=== PATIENT | male | born 1960 | race African-American/Black ===

== ENCOUNTER 2018-10-18 11:16 | Observation (INO) | payer BC ==
[~2018-10-18] VITALS: Ht 193 cm; Wt 150.0 kg
[2018-10-18 12:03] LABS: EOSINOPHILS % (AUTO) 0.4 % (0-6); HEMATOCRIT 43.2 % (42.0-52.0); HEMOGLOBIN 14.1 g/dl (14.0-17.9); LYMPHOCYTES # (AUTO) 1.3 X10'3 (1.1-4.8); LYMPHOCYTES % (AUTO) 33.7 % (21-51); MEAN CORPUSCULAR HEMOGLOBIN 24.3 PG (27.0-31.0); MEAN CORPUSCULAR HGB CONC 32.6 g/dL (33.0-36.5); MEAN CORPUSCULAR VOLUME 74.5 FL (78-98); MEAN PLATELET VOLUME 8.5 FL (7.4-10.4); MONOCYTES # (AUTO) 0.3 X10'3 (0-0.9); MONOCYTES % (AUTO) 7.1 % (2-12); NEUTROPHILS # (AUTO) 2.3 X10'3 (1.8-7.7); NEUTROPHILS % (AUTO) 57.8 % (42-75); PLATELET COUNT 258 X10'3 (140-440); RED BLOOD COUNT 5.79 X10'6 (4.70-6.10)
[2018-10-18 12:13] LABS: ALANINE AMINOTRANSFERASE 33 U/L (12-78); ALBUMIN 3.9 G/DL (3.4-5.0); ALBUMIN/GLOBULIN RATIO 1.1 (1.1-1.5); ALKALINE PHOSPHATASE 173 IU/L (46-116); ANION GAP 8 (8-16); ASPARTATE AMINO TRANSFERASE 25 U/L (10-37); BILIRUBIN,TOTAL 0.8 MG/DL (0.1-1.0); BLOOD UREA NITROGEN 16 MG/DL (7-18); BUN/CREATININE RATIO 12.1 (5.4-32.0); CHLORIDE 108 MMOL/L (99-107); CREATININE 1.32 MG/DL (0.60-1.10); GLUCOSE 110 MG/DL (70-104); POTASSIUM 3.7 MMOL/L (3.5-5.1); SODIUM 142 MMOL/L (135-145); TOTAL CARBON DIOXIDE 25.8 MMOL/L (24-32); TOTAL PROTEIN 7.5 G/DL (6.4-8.2); eGFR 68 ML/MIN
[2018-10-18] MEDS ORDERED: HYDROcodone/acetaminophen 5mg/325mg tablet PO PRN (13:00)
[2018-10-18] MEDS ORDERED: ondansetron/PF 4mg/2ml inj IV PRN (13:00)
[2018-10-18] MEDS ORDERED: acetaminophen 325mg tablet PO PRN ×2 (13:00)
[2018-10-18] MEDS ORDERED: magnesium hydroxide 30ml (MOM) UD suspension PO PRN (13:00)
[2018-10-18] MEDS ORDERED: morphine 2 MG/ML inj. syringe IV PRN ×2 (13:00)
[2018-10-18] MEDS ORDERED: mag hydrox/Alum hydrox/simeth 30ml oral suspension PO PRN (13:00)
[2018-10-18] MEDS: normal saline 1000ml 1,000 ML IV SCH ×3 (13:31→22:34)
[2018-10-18 13:34] LABS: MAGNESIUM 2.1 MG/DL (1.5-2.4); PHOSPHORUS 3.1 MG/DL (2.3-4.5)
--- NOTE | 2018-10-18 13:45 | NUR ---
Patient in room PCU 3027. I have received report from ED RN and had the opportunity to ask questions and assume patient care. Awaiting patient's arrival to PCU 3027A.
[2018-10-18] MEDS ORDERED: ASPI-1130 PO (13:59)
[2018-10-18] MEDS ORDERED: HYDR12.55 PO (13:59)
[2018-10-18] MEDS ORDERED: AMLO2.5T5 PO (13:59)
[2018-10-18] MEDS ORDERED: ATOR40TA72 PO (13:59)
[2018-10-18] MEDS ORDERED: METF-950 PO (13:59)
[2018-10-18 14:10] VITALS: BP 135/78
--- NOTE | 2018-10-18 14:47 | NUR ---
VS: 97.5 58 16 98.0 135/78, no pain noted, Patient has been transferred from ED to PCU 3027A @1410, able to ambulate from gurney to bed, tele monitor placed, reoriented patient to unit, call light w/in reach, all needs met at this time. will continue to monitor.
[2018-10-18 15:00] VITALS: BP 143/63
[2018-10-18 16:21] VITALS: BP_SYST 124; BP_SYST 141; BP_SYST 143; BP_DIAS 68; BP_DIAS 76; BP_DIAS 77
--- NOTE | 2018-10-18 18:15 | NUR ---
Problems reprioritized. Patient report given, questions answered & plan of care reviewed with Geremias VASQUEZ.
--- NOTE | 2018-10-18 18:33 | NUR ---
Patient in room PCU 5172j. I have received report from Niharika RN and Fatou RN and had the opportunity to ask questions and assume patient care. Patient awake for bedside report and stable at this time. NS infusing at 100 mL/hr into 18G L hand. Son in room. Will continue to monitor closely.
--- NOTE | 2018-10-18 18:45 | NUR ---
Problems reprioritized. Patient report given, questions answered & plan of care reviewed with CHRISTINA Archuleta. Patient stable at transfer of care.
--- NOTE | 2018-10-18 18:45 | NUR ---
[place] documentation: I have reviewed and agree with all interventions, assessments performed and documented by CHRISTINA Langston. [place] Medication Administration: For this medication-pass time frame, all medication were reviewed, dispensed, administered and documented per hospital policy by CHRISTINA Langston.
[2018-10-18 19:00] VITALS: BP 141/78
[2018-10-18 20:00] VITALS: BP_SYST 126; BP_SYST 129; BP_SYST 137; BP_DIAS 60; BP_DIAS 65; BP_DIAS 80
[2018-10-18 23:00] VITALS: BP 126/60
[2018-10-19 03:00] VITALS: BP 124/75
[2018-10-19 04:57] LABS: BASOPHILS % (AUTO) 0.5 % (0-1); EOSINOPHILS # (AUTO) 0.1 X10'3 (0-0.9); EOSINOPHILS % (AUTO) 1.8 % (0-6); HEMATOCRIT 38.7 % (42.0-52.0); HEMOGLOBIN 12.9 g/dl (14.0-17.9); LYMPHOCYTES # (AUTO) 1.6 X10'3 (1.1-4.8); LYMPHOCYTES % (AUTO) 43.8 % (21-51); MEAN CORPUSCULAR HEMOGLOBIN 24.6 PG (27.0-31.0); MEAN CORPUSCULAR HGB CONC 33.2 g/dL (33.0-36.5); MEAN CORPUSCULAR VOLUME 73.9 FL (78-98); MEAN PLATELET VOLUME 8.3 FL (7.4-10.4); MONOCYTES # (AUTO) 0.4 X10'3 (0-0.9); MONOCYTES % (AUTO) 11.1 % (2-12); NEUTROPHILS # (AUTO) 1.6 X10'3 (1.8-7.7); NEUTROPHILS % (AUTO) 42.8 % (42-75); PLATELET COUNT 223 X10'3 (140-440); RED BLOOD COUNT 5.24 X10'6 (4.70-6.10); WHITE BLOOD COUNT 3.8 X10'3 (4.5-11.0)
[2018-10-19 05:02] LABS: ALBUMIN 3.4 G/DL (3.4-5.0); ANION GAP 9 (8-16); BLOOD UREA NITROGEN 15 MG/DL (7-18); BUN/CREATININE RATIO 10.9 (5.4-32.0); CALCIUM 8.5 MG/DL (8.5-10.1); CHLORIDE 108 MMOL/L (99-107); CREATININE 1.37 MG/DL (0.60-1.10); GLUCOSE 110 MG/DL (70-104); POTASSIUM 3.8 MMOL/L (3.5-5.1); SODIUM 145 MMOL/L (135-145); TOTAL CARBON DIOXIDE 27.6 MMOL/L (24-32); eGFR 65 ML/MIN
[2018-10-19] MEDS ORDERED: CETI10TA14 PO (06:16)
--- NOTE | 2018-10-19 06:32 | NUR ---
Problems reprioritized. Patient report given, questions answered & plan of care reviewed with CHRISTINA Reeves.
--- NOTE | 2018-10-19 06:35 | NUR ---
Patient in room PCU 3027. I have received report from Geremias VASQUEZ and had the opportunity to ask questions and assume patient care.
[2018-10-19 07:00] VITALS: BP 107/46
[2018-10-19 08:00] VITALS: BP_SYST 130; BP_SYST 134; BP_SYST 148; BP_DIAS 68; BP_DIAS 70
[2018-10-19] MEDS ORDERED: aspirin 81mg tablet.DR PO SCH (08:00)
[2018-10-19] MEDS ORDERED: non-formulary drug (Atorvastatin Calcium 1 TAB) PO SCH (08:00)
[2018-10-19] MEDS ORDERED: atorvastatin 20mg tablet PO SCH (08:00)
[2018-10-19] MEDS ORDERED: HYDROchlorothiazide 12.5mg capsule PO SCH (08:00)
[2018-10-19] MEDS ORDERED: non-formulary drug (Hydrochlorothiazide 1 TAB) PO SCH (08:00)
[2018-10-19] MEDS ORDERED: metFORMIN 500mg tablet PO SCH (08:00)
[2018-10-19] MEDS ORDERED: amLODIPine 2.5mg tablet PO SCH (08:00)
[2018-10-19] MEDS: normal saline 1000ml 1,000 ML IV SCH ×2 (09:20→09:21)
[2018-10-19 11:00] VITALS: BP 141/60
[2018-10-19] MEDS ORDERED: APIX5TAB3 PO (11:03)
--- NOTE | 2018-10-19 12:10 | NUR ---
Reviewed discharge instruction with pt. Educated pt on following up with Dr. Farrell and pt's PCP. Pt is scheduled to his PCP 10/21/18. Called in new prescription to [facility] in [facility]. Discontinued IV with canula intact and removed tele monitor. Pt alert and oriented X 4, BP 141/60 HR 59 SPO2 98% on room air. Pt discharged with all of his belongings and driven home by family member.
== END 2018-10-19 12:10 | disposition home or self-care (01) ==
LOC: ER 11:17 → PCU 3S 14:12 → CMPBEDREQ 19:47
PROVIDERS: ADMIT Internal Medicine; ATTEND Internal Medicine
DX: I48.92 Unspecified atrial flutter (principal); R42 Dizziness and giddiness; R00.1 Bradycardia, unspecified; E11.9 Type 2 diabetes mellitus without complications; E78.5 Hyperlipidemia, unspecified; I10 Essential (primary) hypertension; E78.00 Pure hypercholesterolemia, unspecified; E66.01 Morbid (severe) obesity due to excess calories; Z68.41 Body mass index [BMI] 40.0-44.9, adult; G47.30 Sleep apnea, unspecified
CPT/HCPCS: 36415; 71046; 80048; 80053; 83735; 83880; 84100; 84443; 84484; 85025; 87081; 93005; 93306; 96360; 96361; 99284; G0378; J7030

== ENCOUNTER 2019-06-12 22:22 | Inpatient (IN) | payer BC ==
[~2019-06-12] VITALS: Ht 193 cm; Wt 147.0 kg
[~2019-06-12 22:22] MED LIST: AMLO2.5T5 PO; APIX5TAB3 PO; ATOR40TA72 PO; CETI10TA14 PO; HYDR12.55 PO; METF-950 PO
[2019-06-12] MEDS ORDERED: metoprolol tartrate 1mg/ml inj IV ONE (22:50)
[2019-06-12 23:16] LABS: BASOPHILS % (AUTO) 0.7 % (0-1); EOSINOPHILS # (AUTO) 0.1 X10'3 (0-0.9); EOSINOPHILS % (AUTO) 1.5 % (0-6); HEMATOCRIT 44.5 % (42.0-52.0); HEMOGLOBIN 15.2 g/dl (14.0-17.9); LYMPHOCYTES # (AUTO) 1.7 X10'3 (1.1-4.8); LYMPHOCYTES % (AUTO) 36.1 % (21-51); MEAN CORPUSCULAR HEMOGLOBIN 26.2 PG (27.0-31.0); MEAN CORPUSCULAR HGB CONC 34.1 g/dL (33.0-36.5); MEAN CORPUSCULAR VOLUME 76.6 FL (78-98); MEAN PLATELET VOLUME 8.6 FL (7.4-10.4); MONOCYTES # (AUTO) 0.4 X10'3 (0-0.9); MONOCYTES % (AUTO) 9.2 % (2-12); NEUTROPHILS # (AUTO) 2.5 X10'3 (1.8-7.7); NEUTROPHILS % (AUTO) 52.5 % (42-75); PLATELET COUNT 245 X10'3 (140-440); RED BLOOD COUNT 5.81 X10'6 (4.70-6.10); RED CELL DISTRIBUTION WIDTH 14.4 % (11.5-14.5); WHITE BLOOD COUNT 4.8 X10'3 (4.5-11.0)
[2019-06-12 23:26] LABS: ALANINE AMINOTRANSFERASE 50 U/L (12-78); ALBUMIN 3.8 G/DL (3.4-5.0); ALKALINE PHOSPHATASE 139 IU/L (46-116); ANION GAP 9 (8-16); ASPARTATE AMINO TRANSFERASE 39 U/L (10-37); BILIRUBIN,TOTAL 0.5 MG/DL (0.1-1.0); BLOOD UREA NITROGEN 20 MG/DL (7-18); BUN/CREATININE RATIO 13.2 (5.4-32.0); CALCIUM 9.2 MG/DL (8.5-10.1); CHLORIDE 106 MMOL/L (99-107); CREATININE 1.52 MG/DL (0.60-1.10); GLUCOSE 173 MG/DL (70-104); POTASSIUM 3.8 MMOL/L (3.5-5.1); SODIUM 144 MMOL/L (135-145); TOTAL CARBON DIOXIDE 29.3 MMOL/L (24-32); TOTAL PROTEIN 7.5 G/DL (6.4-8.2); eGFR 57 ML/MIN
[2019-06-12] MEDS ORDERED: OMEG1CAP21 PO (23:51)
[2019-06-12] MEDS ORDERED: TURM538C PO (23:51)
[2019-06-12] MEDS ORDERED: CHOL200041 PO (23:51)
[2019-06-12] MEDS ORDERED: CINN500C2 PO (23:51)
[2019-06-12] MEDS ORDERED: APIX5TAB3 PO (23:52)
[2019-06-13] VITALS (12 sets, daily range): BP systolic 123–164; BP diastolic 67–82
[2019-06-13] MEDS ORDERED: mag hydrox/Alum hydrox/simeth 30ml oral suspension PO PRN (00:10)
[2019-06-13] MEDS ORDERED: heparin 10,000 units/1 ML INJ IV PRN (00:10)
[2019-06-13] MEDS ORDERED: MESSAGE TO PHARMACY PO ONE (00:10)
[2019-06-13] MEDS ORDERED: glucagon, human recombinant 1mg kit SUBCUT PRN (00:10)
[2019-06-13] MEDS ORDERED: aminophylline 250mg/10ml inj. IV PRN ×2 (00:10→07:30)
[2019-06-13] MEDS ORDERED: potassium Cl 20 mEq SR tablet PO PRN ×2 (00:10)
[2019-06-13] MEDS ORDERED: magnesium 2GM in 50ml NS 50 ML IV PRN (00:10)
[2019-06-13] MEDS ORDERED: regadenoson 0.4mg/5ml syringe IV ONE ×2 (00:10→07:30)
[2019-06-13] MEDS ORDERED: acetaminophen 325mg tablet PO PRN (00:10)
[2019-06-13] MEDS ORDERED: nitroGLYCERIN 0.4mg SUBLingual tab SL PRN (00:10)
[2019-06-13] MEDS ORDERED: metoprolol tartrate 1mg/ml inj IV PRN ×2 (00:10→06:00)
[2019-06-13] MEDS ORDERED: magnesium 4gm in 100ml NS 100 ML IV PRN (00:10)
[2019-06-13] MEDS ORDERED: ondansetron/PF 4mg/2ml inj IV PRN (00:10)
[2019-06-13] MEDS ORDERED: dextrose 50%-water 50ml dispensing syringe IV PRN ×2 (00:10)
[2019-06-13] MEDS ORDERED: dextrose ORAL solution 15 GM/59 ML bottle PO PRN ×2 (00:10)
[2019-06-13] MEDS ORDERED: potassium CL 10mEq/100ml bag 100 ML IV PRN ×2 (00:10)
[2019-06-13] MEDS ORDERED: heparin 25,000 UNIT/250ml bag 250 ML IV SCH (00:10)
[2019-06-13] MEDS ORDERED: magnesium hydroxide 30ml (MOM) UD suspension PO PRN (00:10)
[2019-06-13] MEDS ORDERED: heparin 10,000 units/1 ML INJ IV ONE (00:10)
[2019-06-13 00:39] LABS: PARTIAL THROMBOPLASTIN TIME 33 SECONDS (22-32)
[2019-06-13 01:09] LABS: HEMOGLOBIN A1C 9.9 % (4.5-6.2)
--- NOTE | 2019-06-13 06:11 | NUR ---
Problems reprioritized. Patient report given, questions answered & plan of care reviewed with Noa VASQUEZ.
--- NOTE | 2019-06-13 06:35 | NUR ---
Patient in room PCU 3027. I have received report from Yudy VASQUEZ and had the opportunity to ask questions and assume patient care.
[2019-06-13 07:04] LABS: BASOPHILS % (AUTO) 0.8 % (0-1); EOSINOPHILS # (AUTO) 0.1 X10'3 (0-0.9); EOSINOPHILS % (AUTO) 1.2 % (0-6); HEMATOCRIT 41.6 % (42.0-52.0); LYMPHOCYTES # (AUTO) 2.1 X10'3 (1.1-4.8); LYMPHOCYTES % (AUTO) 42.1 % (21-51); MEAN CORPUSCULAR HEMOGLOBIN 25.8 PG (27.0-31.0); MEAN CORPUSCULAR HGB CONC 33.6 g/dL (33.0-36.5); MEAN PLATELET VOLUME 9.3 FL (7.4-10.4); MONOCYTES # (AUTO) 0.4 X10'3 (0-0.9); MONOCYTES % (AUTO) 7.8 % (2-12); NEUTROPHILS # (AUTO) 2.4 X10'3 (1.8-7.7); NEUTROPHILS % (AUTO) 48.1 % (42-75); PLATELET COUNT 213 X10'3 (140-440); RED BLOOD COUNT 5.41 X10'6 (4.70-6.10); RED CELL DISTRIBUTION WIDTH 14.5 % (11.5-14.5)
[2019-06-13 07:14] LABS: ALANINE AMINOTRANSFERASE 48 U/L (12-78); ALBUMIN 3.5 G/DL (3.4-5.0); ALBUMIN/GLOBULIN RATIO 1.1 (1.1-1.5); ALKALINE PHOSPHATASE 130 IU/L (46-116); ANION GAP 8 (8-16); ASPARTATE AMINO TRANSFERASE 38 U/L (10-37); BILIRUBIN,TOTAL 0.4 MG/DL (0.1-1.0); BLOOD UREA NITROGEN 21 MG/DL (7-18); BUN/CREATININE RATIO 14.1 (5.4-32.0); CALCIUM 8.8 MG/DL (8.5-10.1); CHLORIDE 107 MMOL/L (99-107); CREATININE 1.49 MG/DL (0.60-1.10); GLUCOSE 195 MG/DL (70-104); POTASSIUM 3.6 MMOL/L (3.5-5.1); SODIUM 141 MMOL/L (135-145); TOTAL CARBON DIOXIDE 25.7 MMOL/L (24-32); TOTAL PROTEIN 6.7 G/DL (6.4-8.2); eGFR 59 ML/MIN
[2019-06-13] MEDS ORDERED: K and/or MAG REPLACEMENT MC SCH (08:00)
[2019-06-13] MEDS ORDERED: apixaban 5mg tablet PO SCH (08:00)
[2019-06-13] MEDS ORDERED: non-formulary drug (Cinnamon Bark (Cinnamon) 2 CAP) PO SCH (08:00)
[2019-06-13] MEDS ORDERED: amLODIPine 2.5mg tablet PO SCH (08:00)
[2019-06-13] MEDS ORDERED: atorvastatin 20mg tablet PO SCH (08:00)
[2019-06-13] MEDS ORDERED: vitamin D (cholecalciferol) 1,000 unit tablet PO SCH (08:00)
[2019-06-13] MEDS ORDERED: metoprolol succinate 25mg (24-HOUR) SR. Tablet PO SCH (08:00)
[2019-06-13] MEDS ORDERED: OMEGA-3/DHA/EPA/FISH OIL 1 EACH CAPSULE.DR PO SCH (08:00)
[2019-06-13] MEDS: insulin Lispro (HumaLOG) vial - multi-dose SQ SCH ×2 (08:20→12:43)
--- NOTE | 2019-06-13 13:26 | NUR ---
PAGER ID: [phone] MESSAGE: [id number] Jaime Aj Results of kash scan are up, can the patient eat? January VASQUEZ PCU ext [phone]
[2019-06-13] MEDS ORDERED: METO-395 PO (14:25)
--- NOTE | 2019-06-13 14:50 | NUR ---
DM/cardiac diet consults: "Newly DX DM". Pt/family seen by LETA for written/verbal DM ed w/ RD contact information provided. Pt reports newer DM DX and has not had much time working on diet changes. Pt reports checks GLU 4x daily, takes metformin BID and Januvia daily, and usual GLU ~[address] reviewed hyperglycemia/hypoglycemia signs/symptoms and diet recommendations as well as sick day guidelines. RD encouraged pt to attend CDE course. Addendum: 06/13/19 at [address] Amended: Links added.
--- NOTE | 2019-06-13 15:18 | NUR ---
Patient has been cleared to discharge home after Dr. Page reviewed the results of the Fay. All discharge instructions reviewed with patient. Patient was educated about s/sx and also about diabetes and management. Diabetic survival skills provided to the patient. RD consulted with patient prior to discharge. PIV removed. Tele removed. Patient left in stable condition.
[2019-06-13] MEDS ORDERED: insulin glargine (Lantus) pen - multi-dose SQ SCH (21:00)
== END 2019-06-13 14:55 | disposition home or self-care (01) | DRG 310 ==
LOC: ER 22:22 → ED HOLD 06-13 00:10 → PCU 3S 06-13 00:40
PROVIDERS: ADMIT Family Medicine; ATTEND Family Medicine
PROC: 4A02XM4 Measurement of Cardiac Total Activity, External Approach (ICD-10-PCS; principal; 2019-06-13)
DX: I48.4 Atypical atrial flutter (principal); E11.22 Type 2 diabetes mellitus with diabetic chronic kidney disease; E78.00 Pure hypercholesterolemia, unspecified; E78.5 Hyperlipidemia, unspecified; G47.33 Obstructive sleep apnea (adult) (pediatric); I12.9 Hypertensive chronic kidney disease with stage 1 through stage 4 chronic kidney disease, or unspecified chronic kidney disease; N18.9 Chronic kidney disease, unspecified; Z82.49 Family history of ischemic heart disease and other diseases of the circulatory system; Z98.1 Arthrodesis status; Z79.899 Other long term (current) drug therapy; Z79.84 Long term (current) use of oral hypoglycemic drugs
CPT/HCPCS: 36415; 71045; 78452; 80053; 82948; 83036; 84484; 85025; 85610; 85730; 87081; 93005; 93017; 93306; 96374; 97161; 97530; 99285; A9500; G0378; J1644; J1815; J2785; J3490

== ENCOUNTER 2022-01-19 16:32 | Emergency (ER) | payer BC ==
[~2022-01-19] VITALS: Ht 193 cm; Wt 330.0 kg
[~2022-01-19 16:32] MED LIST changes: -CETI10TA14 PO; +CHOL200041 PO; +CINN500C2 PO; +METF-1203 PO; -METF-950 PO; +METO-395 PO; +OMEG1CAP21 PO; +TURM538C PO
[2022-01-19 16:45] VITALS: BP 157/79
[2022-01-19 17:48] LABS: BASOPHILS % (AUTO) 0.8 % (0-1); EOSINOPHILS # (AUTO) 0.1 X10'3 (0-0.9); EOSINOPHILS % (AUTO) 1.5 % (0-6); HEMATOCRIT 45.1 % (42.0-52.0); HEMOGLOBIN 14.8 g/dl (14.0-17.9); LYMPHOCYTES # (AUTO) 2.1 X10'3 (1.1-4.8); LYMPHOCYTES % (AUTO) 39.2 % (21-51); MEAN CORPUSCULAR HEMOGLOBIN 26.5 PG (27.0-31.0); MEAN CORPUSCULAR HGB CONC 32.9 g/dL (33.0-36.5); MEAN CORPUSCULAR VOLUME 80.4 FL (78-98); MEAN PLATELET VOLUME 8.6 FL (7.4-10.4); MONOCYTES # (AUTO) 0.5 X10'3 (0-0.9); MONOCYTES % (AUTO) 9.4 % (2-12); NEUTROPHILS # (AUTO) 2.7 X10'3 (1.8-7.7); NEUTROPHILS % (AUTO) 49.1 % (42-75); PLATELET COUNT 223 X10'3 (140-440); RED BLOOD COUNT 5.61 X10'6 (4.70-6.10); RED CELL DISTRIBUTION WIDTH 14.5 % (11.5-14.5); WHITE BLOOD COUNT 5.4 X10'3 (4.5-11.0)
[2022-01-19 18:02] LABS: ALANINE AMINOTRANSFERASE 38 U/L (12-78); ALBUMIN 3.9 G/DL (3.4-5.0); ALBUMIN/GLOBULIN RATIO 1.2 (1.1-1.5); ALKALINE PHOSPHATASE 122 IU/L (46-116); ANION GAP 7 (8-16); ASPARTATE AMINO TRANSFERASE 18 U/L (10-37); BILIRUBIN,TOTAL 0.4 MG/DL (0.1-1.0); BLOOD UREA NITROGEN 14 MG/DL (7-18); BUN/CREATININE RATIO 10.1 (5.4-32.0); CHLORIDE 105 MMOL/L (99-107); CREATININE 1.39 MG/DL (0.60-1.10); GLUCOSE 122 MG/DL (70-104); POTASSIUM 4.1 MMOL/L (3.5-5.1); SODIUM 141 MMOL/L (135-145); TOTAL CARBON DIOXIDE 29.2 MMOL/L (24-32); TOTAL PROTEIN 7.2 G/DL (6.4-8.2); eGFR 63 ML/MIN
== END 2022-01-20 01:27 | disposition left against medical advice (07) ==
LOC: ER 16:35
DX: R07.9 Chest pain, unspecified (principal); Z53.21 Procedure and treatment not carried out due to patient leaving prior to being seen by health care provider
CPT/HCPCS: 36415; 71045; 80053; 83880; 84484; 85025; 93005

== ENCOUNTER 2023-07-20 08:17 | Outpatient (CLI) | payer BC | END 2023-07-20 23:59 | disposition home or self-care (01) | LOC: RAD 08:17 | PROVIDERS: ATTEND Family Medicine | DX: M79.641 Pain in right hand (principal) | CPT/HCPCS: 73130 ==